=== PATIENT | female | born 1985 | race Hispanic/Latino ===

== ENCOUNTER 2018-07-30 20:00 | Inpatient (IN) | payer MEDICAID, OTHER, SELFPAY ==
[~2018-07-30 20:00] MED LIST: Promethazine HCl 25 MG/ML VIAL IM PRN
[2018-07-30] MEDS ORDERED: HYDROcodone/Acetaminophen 5/325 mg Tablet PO PRN ×2 (21:40)
[2018-07-30] MEDS ORDERED: NS / Oxytocin 40 units/1000ml 1,000 ML IV PRN (21:40)
[2018-07-30] MEDS ORDERED: Ondansetron HCl/PF 4 MG/2 ML Vial IVP PRN (21:40)
[2018-07-30] MEDS ORDERED: Misoprostol 200 MCG TAB PR PRN (21:40)
[2018-07-30] MEDS ORDERED: Ibuprofen 800 MG TAB PO PRN (21:40)
[2018-07-30] MEDS ORDERED: Lidocaine 1% (PF) 30 ML VIAL SC PRN (21:40)
[2018-07-30] MEDS ORDERED: Methylergonovine 0.2 MG/ML VIAL IM PRN (21:40)
[2018-07-30 22:12] LABS: Hemoglobin 8.6 g/dL (12.0-16.0); Mean Corpuscular HGB CONC 32.7 g/dL (32.0-36.0); Mean Corpuscular Hemoglobin 23.2 pg (27.0-31.0); Mean Corpuscular Volume 71.1 fL (78.0-98.0); Mean Platelet Volume 8.5 fL (7.4-10.4); Platelet Count 307 thou/uL (130-400); RBC Distribution Width 16.8 % (11.5-14.5); White Blood Cell (WBC) Count 9.2 thou/uL (4.8-10.8)
[2018-07-30] MEDS: Clindamycin/D5W 900 MG in Premix Bag 1 BAG IVPB SCH (22:14)
[2018-07-30] MEDS: Misoprostol 100 MCG TAB PO SCH (22:20)
[2018-07-30] MEDS: Lactated Ringer's 1,000 ML IV SCH (22:20)
[2018-07-30 22:26] LABS: ALT (SGPT) 22 U/L (8-55); AST (SGOT) 17 U/L (5-34); Albumin 3.3 g/dL (3.5-5.0); Alkaline Phosphatase 173 U/L (40-150); Anion Gap 12 mmol/L (10-20); BUN (Urea Nitrogen) 14 mg/dL (7.0-18.7); Bilirubin, Total 0.7 mg/dL (0.2-1.2); Calc. Creatinine Clearance 0 mL/min (70-130); Calcium 8.3 mg/dL (7.8-10.44); Carbon Dioxide 22 mmol/L (22-29); Chloride 106 mmol/L (98-107); Estimated GFR-MDRD Greater than 90; Globulin 2.6 g/dL (2.4-3.5); Glucose 114 mg/dL (70-105); Potassium 4.1 mmol/L (3.5-5.1); Protein, Total 5.9 g/dL (6.0-8.3); Sodium 136 mmol/L (136-145)
[2018-07-30 22:43] LABS: Syphilis Antibody Nonreactive (Nonreactive); Syphilis Antibody Index 0.02 S/CO (<1.00 Non-Reactive)
[2018-07-30] MEDS: NS w/ Oxytocin 10 units 500 ML IV SCH (22:47)
[2018-07-30 22:49] LABS: HBSAg Index 0.22 S/CO (0-0.99); Hep B Surf Ag Non-Reactive S/CO (NonReactive)
[2018-07-30 22:54] VITALS: BMI 27.6
[2018-07-31] MEDS ORDERED: Butorphanol Tartrate 1 MG/ML VIAL ONE (01:56)
[2018-07-31] MEDS: Misoprostol 100 MCG TAB PO SCH ×5 (01:58→16:54)
[2018-07-31] MEDS ORDERED: Butorphanol Tartrate 1 MG/ML VIAL SLOW IVP PRN (04:49)
[2018-07-31] MEDS: Lactated Ringer's 1,000 ML IV SCH ×2 (05:56→11:17)
[2018-07-31] MEDS: Clindamycin/D5W 900 MG in Premix Bag 1 BAG IVPB SCH ×2 (07:39→16:53)
[2018-07-31] MEDS: NS w/ Oxytocin 10 units 500 ML IV SCH (07:42)
[2018-07-31] MEDS ORDERED: Fentanyl 4 mcg/Bup 0.1% Cadd 100 ML ONE (07:50)
[2018-07-31] MEDS ORDERED: Eucerin (Mineral Oil/Petrolatum,White) 30 gm Jar TOP PRN (08:35)
[2018-07-31] MEDS ORDERED: Naloxone HCl 0.4 mg/ml Vial IVP PRN ×2 (08:35)
[2018-07-31] MEDS ORDERED: Acetaminophen 325 MG TAB PO PRN (08:35)
[2018-07-31] MEDS ORDERED: Lactated Ringer's 500 ML IV PRN (08:35)
[2018-07-31] MEDS ORDERED: ePHEDrine/0.9% NaCl/PF SYRINGE 50 mg/10 ml SLOW IVP PRN (08:35)
[2018-07-31] MEDS ORDERED: Fentanyl 4 mcg/Bupivacaine 0.1% Cassette 100 ML EPIDURAL SCH (08:45)
[2018-07-31] MEDS ORDERED: Communication Order-Pharmacy FS SCH (08:45)
[2018-07-31] MEDS ORDERED: Misoprostol 200 MCG TAB ONE (12:26)
[2018-07-31] MEDS ORDERED: Methylergonovine 0.2 MG/ML VIAL ONE (12:26)
[2018-07-31] MEDS ORDERED: Carboprost 250 MCG/ML AMP ONE (12:27)
--- NOTE | 2018-07-31 12:45 | PDOC.LDHP ---
Labor and Delivery H&P Chief complaint: other (medically indicated induction) HPI: presents to labor and delivery for IOL Current gestational age (weeks): 36 Grav: 6 Para: 3 OB History Details: G6P 3023 hx of IUFD at 26 weeks for trisomy 18. G6 current G5 2011 SAB 8 weeks G4 2010 40 weeks male [id number] 40 weeks F [id number] 26 weeks IUAFd trisomy 18 [id number] 40 weeks Current complications: other (Advanced maternal age GDM - A1 cholestatsis of polyhydramnios) Past Medical History: STD treated. anemia heart murmur Current medications: pre- vitamins, iron Previous surgical history: none Allergies/Adverse Reactions: Allergies Allergy/AdvReac Type Severity Reaction Status Date / Time Penicillins Allergy Mild Hives Verified 07/30/18 23:08 Social history: none - Physical Exam Vital signs reviewed and normal: yes General: NAD Lungs: nonlabored breathing Abdomen: gravid Extremeties: trace edema FHT: category 1 - Vaginal Exam cm dilated: 1 Effacement: 25% Station: -3 - OB Labs Blood type: O RH: positive Antibody Screen: negative HIV: negative RPR: negative HEPSAg: negative 1 hour GCT: positive 3 hour GTT: Failed GBS: positive Urine drug screen: not done Rubella: immune Additional Labs: NIPT neg. AUB in first trimester - Assessment L&D Assessment: medically indicated induction (at 36 weeks for cholestasis of ) - Plan Plan: admit to L&D, cervical ripening, labor augmentation if indicated, GBS antibiotic prophylaxis
--- NOTE | 2018-07-31 12:55 | PDOC.OPDEL ---
OB Operative/Delivery Note Delivery Dr/Surgeon: Vik Caputo CNM Pre-Delivery Diagnosis: medically indicated induction, other (cholestasis GDM a1 polyhydramnios) Weeks gestation: 36 Anesthesia: epidural - Findings A Sex: female - Additional Findings/Plan Placenta delivered: spontaneous Repaired Obstetrical Laceration: 1st degree Estimated blood loss: 500ml Compilations/Other Findings: GBS treated with Clindamycin - which showed resistance after sensitivity results were returned. Post delivery plan: routine recovery
[2018-07-31] MEDS ORDERED: NS / Oxytocin 40 units/1000ml 1,000 ML ONE (13:11)
[2018-07-31] MEDS ORDERED: Milk Of Magnesia 30 ML UDCUP PO PRN (16:21)
[2018-07-31] MEDS ORDERED: HYDROcodone/Acetaminophen 5/325 mg Tablet PO PRN ×2 (16:21)
[2018-07-31] MEDS ORDERED: Bisacodyl 10 MG SUPP PR PRN (16:21)
[2018-07-31] MEDS ORDERED: Benzocaine/Menthol 20-0.5% 60 ML CAN TOP PRN (16:21)
[2018-07-31] MEDS ORDERED: Measles/Mumps/Rubella 10 MCG/0.5 ML VIAL SC ONE (16:21)
[2018-07-31] MEDS ORDERED: Methylergonovine 0.2 MG/ML VIAL IM PRN (16:21)
[2018-07-31] MEDS ORDERED: Ondansetron HCl/PF 4 MG/2 ML Vial IVP PRN (16:21)
[2018-07-31] MEDS ORDERED: Adacel (T-DAP) 0.5 ML VIAL IM ONE (16:21)
[2018-07-31] MEDS ORDERED: Varicella virus, LIVE 0.5 ML VIAL SC ONE (16:21)
[2018-07-31] MEDS ORDERED: NS / Oxytocin 40 units/1000ml 1,000 ML IV SCH (16:30)
[2018-07-31] MEDS: Ferrous Sulfate 325 MG TAB PO SCH (18:19)
[2018-07-31] MEDS: Ibuprofen 800 MG TAB PO SCH (21:39)
[2018-07-31] MEDS: Docusate Calcium (SURFAK) 240 MG CAP PO SCH (21:39)
[2018-08-01] MEDS: Ibuprofen 800 MG TAB PO SCH ×3 (05:05→21:22)
[2018-08-01 07:26] LABS: Hemoglobin 7.8 g/dL (12.0-16.0); Mean Corpuscular HGB CONC 30.7 g/dL (32.0-36.0); Mean Corpuscular Hemoglobin 22.1 pg (27.0-31.0); Mean Platelet Volume 8.5 fL (7.4-10.4); Platelet Count 263 thou/uL (130-400); RBC Distribution Width 16.9 % (11.5-14.5); Red Blood Cell (RBC) Count 3.53 mill/uL (4.20-5.40); White Blood Cell (WBC) Count 14.8 thou/uL (4.8-10.8)
--- NOTE | 2018-08-01 09:03 | PDOC.PP ---
Post Progress Note Post Day #: 1 Subjective: doing well but still itching. passing gas. urinating without difficultly PO intake tolerated: yes Flatus: yes Ambulation: yes Vital Signs (12 hours) Temp Pulse Resp BP BP Pulse Ox 08/01/18 07:40 97.8 F 75 16 125/58 L 100 08/01/18 05:00 97.5 F L 72 20 132/76 08/01/18 00:00 97.5 F L 88 20 114/53 L Weight Weight 146 lb - Physical Examination Cardiovascular: no m/r/g, RRR Respiratory: clear to auscultation bilaterally, non-labored breathing Abdominal: + bowel sounds, lochia (moderate) Fundus firm & at: 0 Extremities: negative homans (B) Skin: no rash Neurological: no gross focal deficits Psychiatric: A&Ox3, normal affect Result Diagrams: 08/01/18 07:16 07/30/18 21:58 Additional Labs: Post Labs Blood Type O POSITIVE 07/30/18 21:58 Hep Bs Antigen Non-Reactive S/CO (NonReactive) 07/30/18 21:58 (1) (spontaneous vaginal delivery) Code(s): O80 - ENCOUNTER FOR FULL-TERM UNCOMPLICATED DELIVERY Status: Acute (2) Cholestasis during Code(s): O26.619 - LIVER AND BILIARY TRACT DISORD IN , UNSP TRIMESTER; K83.1 - OBSTRUCTION OF BILE DUCT Status: Acute (3) Gestational diabetes Code(s): O24.419 - GESTATIONAL DIABETES MELLITUS IN , UNSP CONTROL Status: Acute (4) Advanced maternal age (AMA) in Code(s): [id number] - Status: Acute (5) Polyhydramnios Code(s): O40.9XX0 - POLYHYDRAMNIOS, UNSP TRIMESTER, NOT APPLICABLE OR UNSP Status: Acute (6) Group beta Strep positive Code(s): B95.1 - STREPTOCOCCUS, GROUP B, CAUSING DISEASES CLASSD ELSWHR Status : Acute (7) Anemia Code(s): D64.9 - ANEMIA, UNSPECIFIED Status: Acute - Assessment/Plan A: G6 now P4 following medically indicated IOL for cholestasis P: Start urosiodol for itching. routine care discharge home tomorrow iron for anemia
[2018-08-01] MEDS: Ferrous Sulfate 325 MG TAB PO SCH ×2 (09:15→16:45)
[2018-08-01] MEDS: Docusate Calcium (SURFAK) 240 MG CAP PO SCH ×2 (09:15→21:22)
[2018-08-01] MEDS: Prenatal Vitamin 1 TAB PO SCH (09:15)
[2018-08-01] MEDS: Ursodiol 300 MG CAP PO SCH ×2 (10:15→16:45)
[2018-08-02] MEDS: Ibuprofen 800 MG TAB PO SCH ×2 (06:22→14:09)
--- NOTE | 2018-08-02 06:30 | PDOC.PP ---
Post Progress Note Post Day #: PPD2 Subjective: Doing well, no complaints. PO intake tolerated: yes Ambulation: yes Vital Signs (12 hours) Temp Pulse Resp BP Pulse Ox 08/01/18 21:00 98.3 F 96 18 126/61 98 Weight Weight 66.224 kg - Physical Examination General: NAD Respiratory: non-labored breathing Psychiatric: normal affect Result Diagrams: 08/01/18 07:16 07/30/18 21:58 Additional Labs: Post Labs Blood Type O POSITIVE 07/30/18 21:58 Hep Bs Antigen Non-Reactive S/CO (NonReactive) 07/30/18 21:58 - Assessment/Plan DC home. Precautions. F/u Allison Light in 6 weeks.
[2018-08-02 08:32] VITALS: BP 122/66; TEMP 97.5
[2018-08-02] MEDS: Ferrous Sulfate 325 MG TAB PO SCH (09:04)
[2018-08-02] MEDS: Prenatal Vitamin 1 TAB PO SCH (09:04)
[2018-08-02] MEDS: Ursodiol 300 MG CAP PO SCH ×2 (09:05→12:21)
[2018-08-02] MEDS: Docusate Calcium (SURFAK) 240 MG CAP PO SCH (09:05)
== END 2018-08-02 14:35 | disposition home or self-care (01) | DRG 805 ==
LOC: L&D 20:30 → 3SW 07-31 15:27
PROVIDERS: ADMIT Student in an Organized Health Care Education/Training Program; ATTEND Student in an Organized Health Care Education/Training Program
PROC: 10E0XZZ Delivery of Products of Conception, External Approach (ICD-10-PCS; principal; 2018-07-31)
PROC: 0HQ9XZZ Repair Perineum Skin, External Approach (ICD-10-PCS; 2018-07-31)
PROC: 3E033VJ Introduction of Other Hormone into Peripheral Vein, Percutaneous Approach (ICD-10-PCS; 2018-07-31)
DX: O26.62 Liver and biliary tract disorders in childbirth (principal); K83.1 Obstruction of bile duct; Z37.0 Single live birth; Z3A.36 36 weeks gestation of pregnancy; O24.429 Gestational diabetes mellitus in childbirth, unspecified control; O40.3XX0 Polyhydramnios, third trimester, not applicable or unspecified; O99.824 Streptococcus B carrier state complicating childbirth; O99.02 Anemia complicating childbirth; O70.0 First degree perineal laceration during delivery
CPT/HCPCS: 36415; 36416; 51702; 80053; 85027; 86780; 86850; 86900; 86901; 87340; 88307; J0595; J2001; J2210; J3490